=== PATIENT | female | born 1985 | race Caucasian/White ===

== ENCOUNTER 2020-02-08 13:38 | Day surgery (SDC) | payer OTHER ==
[2020-02-08 14:22] VITALS: BMI 20.9
[2020-02-08] MEDS ORDERED: hydrALAZINE 20 MG/ML VIAL SLOW IVP PRN (15:07)
--- NOTE | 2020-02-08 17:33 | ULT ---
BIOPHYSICAL PROFILE: History: High risk with decreased movement. FINDINGS: A single viable intrauterine in vertex presentation is noted. Amniotic fluid index is 14.2. heart rate is 147 beats/minute. Placenta is posterior in location. biophysical profile score: tone: 2 breathin movement: 2 Amniotic fluid: 2 IMPRESSION: biophysical profile score is 6/8. POS: OFF
--- NOTE | 2020-02-09 01:05 | SS ---
DATE OF ADMISSION: 02/08/2020 DATE OF DISCHARGE: 02/08/2020 Labor and Delivery Triage Note REGULAR PHYSICIAN: Deejay Jalloh MD. CHIEF COMPLAINT: Decreased movement. HISTORY OF PRESENT ILLNESS: Ms. Dockery is a 34-year-old white G4, P1, with an estimated date of confinement of 04/29/2020, who presents complaining of decreased movement as of this morning. She denies associated rupture of membranes or vaginal bleeding. Her care has been with Dr. Mack and has been complicated by vanishing twin in the 1st trimester. She sees Dr. Mack and she also sees Maternal Medicine at [facility] in the [place]. PAST OBSTETRICAL HISTORY: Includes 2 miscarriages as well as a vaginal delivery at 34 weeks secondary to premature rupture of membranes. PAST MEDICAL HISTORY: Includes lupus as well as anxiety. PAST SURGICAL HISTORY: Includes cholecystectomy. CURRENT MEDICATIONS: Multiple includin. vitamins. 2. Progesterone. 3. Phenergan. 4. Lovenox. 5. Lexapro. Zofran. 1. Plaquenil. ALLERGIES: NO KNOWN ALLERGIES. SOCIAL HISTORY: Denies tobacco, alcohol, or drug use. FAMILY HISTORY: Unremarkable. REVIEW OF SYSTEMS: Denies nausea, vomiting, fever, chills, ruptured membranes, or vaginal bleeding. PHYSICAL EXAMINATION: In triage her vital signs are stable. She is afebrile. GENERAL: She is pleasant, in no acute distress. ABDOMEN: Soft and nontender. heart rate tracing is stable. There are no decelerations. movement is ascertained with the Doppler. Her baby is very active. No uterine contractions were seen. Biophysical profiles ordered. They returned 11/08 with the only subtraction being for breathing movements. Her MATT is reported as 14. ASSESSMENT: 1. A 28 and 3/7 week intrauterine . 2. History of vanishing twin. 3. Lupus. 4. No evidence of concern at this time. PLAN: The patient will be dismissed to home. She was instructed regarding kick counts. She states she has a followup appointment with Dr. Mack next week. Job ID: [id number]
== END 2020-02-08 16:20 | disposition home or self-care (01) ==
LOC: L&D/OP 13:38
PROVIDERS: ATTEND Obstetrics & Gynecology
DX: O36.8130 Decreased fetal movements, third trimester, not applicable or unspecified (principal); O09.293 Supervision of pregnancy with other poor reproductive or obstetric history, third trimester; O99.343 Other mental disorders complicating pregnancy, third trimester; F41.9 Anxiety disorder, unspecified; O99.113 Other diseases of the blood and blood-forming organs and certain disorders involving the immune mechanism complicating pregnancy, third trimester; M32.9 Systemic lupus erythematosus, unspecified; Z3A.28 28 weeks gestation of pregnancy; Z79.899 Other long term (current) drug therapy
CPT/HCPCS: 76819

== ENCOUNTER 2020-03-11 13:04 | Day surgery (SDC) | payer OTHER ==
[2020-03-11 14:21] VITALS: BMI 38.4
[2020-03-11] MEDS ORDERED: hydrALAZINE 20 MG/ML VIAL SLOW IVP PRN (15:10)
[2020-03-11 15:39] LABS: Bilirubin Negative (Negative); Blood, Urine Negative (Negative); Clarity Clear (Clear); Glucose, Urine (Dipstick) Normal (Negative); Ketone, Urine 20 mg/dL (Negative); Leukocyte Negative Leu/uL (Negative); Nitrite Negative (Negative); Protein, Urine (Dipstick) Negative (Neg-Trace); RBC/HPF 0-3 HPF (0-3); Specific Gravity, Urine 1.005 (1.002-1.036); Squamous Epithelial 0-3 HPF (0-3); Urobilinogen Normal mg/dL (Less than 2); WBC/HPF None Seen HPF (0-3); pH, Urine 6.5 (5.0-9.0)
[2020-03-11 15:43] LABS: Bacteria/HPF 1+ HPF (None Seen); Urine Culture Reflex Yes Yes
--- NOTE | 2020-03-11 15:57 | PRG ---
DATE OF SERVICE: 03/11/2020 PRIMARY OB: Dr. Deejay Mack. CHIEF COMPLAINT: Uterine contractions. HISTORY OF PRESENT ILLNESS: The patient is a 34-year-old, G4, P1 female with an intrauterine at 33 weeks gestation with a twin gestation with vanishing twin in the first trimester. The patient reports that she has been feeling irregular contractions anywhere between 5 and 20 minutes present, but not painful, and has been occurring for the last 4 hours or so. The patient denies any fever, headache, chest pain, shortness of breath, nausea, vomiting, diarrhea, constipation, hip problems, knee problems, or muscle weakness. She denies change in discharge, vaginal bleeding, leakage of fluid, urinary urgency, or frequency. She does report she has had a few urinary tract infections with this . The patient had been at work today through these contractions. PAST MEDICAL HISTORY: Includes lupus and anxiety. PAST SURGICAL HISTORY: Cholecystectomy. OBSTETRIC HISTORY: She has a history of rupture of membranes at 34 weeks and two miscarriages. ALLERGIES: NO KNOWN DRUG ALLERGIES. MEDICATIONS: 1. vitamins. 2. Progesterone. 3. Phenergan. 4. Lovenox. 5. Lexapro. 6. Zofran. 7. Plaquenil. SOCIAL HISTORY: Denies drug, alcohol, or tobacco use. OB LABS: Unavailable at the time of dictation. REVIEW OF SYSTEMS: Per HPI. PHYSICAL EXAMINATION: VITAL SIGNS: Blood pressure 113/59, heart rate of 99, respiratory rate of 18, saturating 99% on room air. GENERAL: She appears to be in no acute distress. She is alert, oriented, cooperative, and pleasant to interact with. HEAD: Normocephalic and atraumatic. LUNGS: Clear to auscultation bilaterally. HEART: Has regular rate and rhythm. ABDOMEN: Gravid, soft, nontender. EXTREMITIES: Nontender and nonedematous. GENITOURINARY: Vulva is without masses, lesions, or erythema. Vagina is moist. She has minimal discharge present. Cervix is visibly closed and full. On digital exam, cervix is very soft, but is closed. heart tracing shows the fetus with a baseline in the 130s with moderate long-term variability, positive 15 x 15 accelerations, no decelerations. Tocometer showing some irritability, but no real consistent contraction seen. There has only been one or maybe two distinct contractions visible over the course of about an hour and a half. VPIII and urinalysis are both pending. ASSESSMENT AND PLAN: The patient is a 34-year-old female, G4, P1, with an intrauterine at 33 weeks gestation, who is presenting for some intermittent contractions. She has no evidence of labor at this time. We have collected a urinalysis and VPIII, for which results have not returned. The patient is being discharged home. We will be contacting her by phone to give her results. The fetus has a category 1 tracing. She is scheduled to see her provider early next week that we have encouraged to keep. Addendum: UA + for 1+bacteria - RX macrobid sent ucx pendig vp3 neg/neg/neg Job ID: [id number] [facility] SYSTEMOm[facility]
[2020-03-11] MEDS ORDERED: Nitrofurantoin Monohyd/M-Cryst 100 MG CAP PO SCH (21:00)
[2020-03-12] MEDS ORDERED: FLU VACC QS2020-21(6MOS UP)/PF 60 MCG/0.5 ML SYRINGE IM ONE (09:00)
== END 2020-03-11 15:45 | disposition home or self-care (01) ==
LOC: L&D/OP 13:04 → SDC 13:04 → L&D/OP 15:45
PROVIDERS: ATTEND Obstetrics & Gynecology
DX: O47.03 False labor before 37 completed weeks of gestation, third trimester (principal); O23.43 Unspecified infection of urinary tract in pregnancy, third trimester; B96.89 Other specified bacterial agents as the cause of diseases classified elsewhere; O99.343 Other mental disorders complicating pregnancy, third trimester; F41.9 Anxiety disorder, unspecified; O99.891 Other specified diseases and conditions complicating pregnancy; M32.9 Systemic lupus erythematosus, unspecified; O09.293 Supervision of pregnancy with other poor reproductive or obstetric history, third trimester; Z3A.33 33 weeks gestation of pregnancy; Z79.01 Long term (current) use of anticoagulants; Z79.899 Other long term (current) drug therapy; Z91.013 Allergy to seafood
CPT/HCPCS: 36415; 81001; 87086; 87480; 87510; 87660

== ENCOUNTER 2020-03-20 13:02 | Day surgery (SDC) | payer OTHER ==
[2020-03-20 14:03] LABS: Amnisure Test No Membranes Rupture (No Rupture)
[2020-03-20 14:04] VITALS: BP 122/76; TEMP 99.3; BMI 37.9
[2020-03-20 14:04] LABS: Amnisure Internal Control QC ACCEPTABLE (ACCEPTABLE)
[2020-03-20] MEDS ORDERED: FLU VACC QS2020-21(6MOS UP)/PF 60 MCG/0.5 ML SYRINGE IM ONE (14:15)
--- NOTE | 2020-03-20 14:31 | PDOC.LDHP ---
Labor and Delivery H&P Chief complaint: loss of fluid HPI: Patient is a 34 yo at 34.2 weeks gestational age who presents with complaint of loss of fluid that occurred around 0200 today. Patient says she had intercourse with her about an hour prior to that and then laid down in bed and had a large pool of fluid that came out. No leakage of fluid since. Denies any vaginal bleeding, dysuria, abdominal pain, back pain. Does have nausea and vomiting that has lasted throughout the entire . Patient has a history of rupture of membranes at 34 weeks in her first . Also recently diagnosed with UTI and currently taking Macrobid, last dose today. Current gestational age (weeks): 34 (34.2) Grav: 4 Para: 1 (1021) OB History Details: Hx of rupture of membranes at 34 weeks in prior Hx of 2 miscarriages Current complicated by vanishing twin in the 1st trimester Abnormal US findings: No Past Medical History: Anxiety SLE, currently on Lovenox therapy during this Current medications: pre-josr vitamins Previous surgical history: cholecystectomy (age 19) Allergies/Adverse Reactions: Allergies Allergy/AdvReac Type Severity Reaction Status Date / Time No Known Drug Allergies Allergy Verified 03/20/20 13:51 SHRIMP AND CRAB BUT NOT Allergy Uncoded 09/13/13 03:05 CONTRAST Social history: none - Physical Exam Vital signs reviewed and normal: yes General: resting Lungs: nonlabored breathing Abdomen: gravid Extremeties: no edema FHT: category 1 [place] contractions every: none seen - Vaginal Exam cm dilated: 0 (no pooling of fluid on speculum exam) - Plan -: Patient is a 34 yo at 34.2 weeks gestational age who presents to L&D triage: #Possible ROM--ruled out -Amnisure negative -sterile speculum exam reveals no pooling of fluid -no evidence of labor at this time, FHT with baseline 145 bpm and +accels, no CTX -follows with Dr. Mack, has appointment this week #Hx of SLE -aware -currently on Plaquenil and Lovenox therapy #Hx of UTI -currently on Macrobid, last dose today Dispo: Ruled out rupture of membranes at this time. Provided patient reassurance and return precautions given. Discharged to home in stable condition. Addendum - Attending - Attending Attestation Date/Time: 03/20/20 2161 I personally evaluated the patient and discussed the management with Dr. Cornell. 34 week IUP c/o ? LOF. Pt. of Dr. Mack. Amnisure and SSE both negative. Home with precautions. I agree with the History, Examination, Assessment and Plan documented above.
== END 2020-03-20 14:30 | disposition home or self-care (01) ==
LOC: L&D/OP 13:02
PROVIDERS: ATTEND Obstetrics & Gynecology
DX: O99.891 Other specified diseases and conditions complicating pregnancy (principal); N89.8 Other specified noninflammatory disorders of vagina; O99.113 Other diseases of the blood and blood-forming organs and certain disorders involving the immune mechanism complicating pregnancy, third trimester; M32.9 Systemic lupus erythematosus, unspecified; O23.43 Unspecified infection of urinary tract in pregnancy, third trimester; O99.343 Other mental disorders complicating pregnancy, third trimester; F41.9 Anxiety disorder, unspecified; O09.293 Supervision of pregnancy with other poor reproductive or obstetric history, third trimester; Z3A.34 34 weeks gestation of pregnancy; Z79.01 Long term (current) use of anticoagulants; Z79.899 Other long term (current) drug therapy; Z91.013 Allergy to seafood
CPT/HCPCS: 84112; 99284

== ENCOUNTER 2020-03-23 10:03 | Observation (INO) | payer OTHER ==
[2020-03-23] MEDS ORDERED: hydrALAZINE 20 MG/ML VIAL SLOW IVP PRN (10:11)
[2020-03-23] MEDS ORDERED: Ondansetron PF 4 MG/2 ML Vial IVP PRN (10:11)
[2020-03-23] MEDS ORDERED: Promethazine HCl 25 MG/ML VIAL IM PRN (10:11)
[2020-03-23 10:43] VITALS: BMI 37.9
[2020-03-23 11:10] LABS: Hemoglobin 11.1 g/dL (12.0-16.0); Mean Corpuscular HGB CONC 33.6 g/dL (32.0-36.0); Mean Corpuscular Hemoglobin 27.9 pg (27.0-31.0); Platelet Count 292 thou/uL (130-400); RBC Distribution Width 11.7 % (11.5-14.5); White Blood Cell (WBC) Count 7.2 thou/uL (4.8-10.8)
[2020-03-23] MEDS: Betamet Acet/Betamet Na Ph 30 MG/5 ML VIAL IM SCH (11:27)
[2020-03-23 11:56] LABS: Syphilis Antibody Nonreactive (Nonreactive); Syphilis Antibody Index 0.03 S/CO (<1.00 Non-Reactive)
[2020-03-23 11:58] LABS: HBSAg Index 0.16 S/CO (0-0.99); Hep B Surf Ag Non-Reactive S/CO (NonReactive)
--- NOTE | 2020-03-23 17:35 | HP ---
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 HISTORY OF PRESENT ILLNESS: Ms. Dockery is a 34-year-old 4, para 1, AB 1, vanishing twin one, with an EDC of 04/28/2020. She is at 34 weeks and 6 days. She has been seen in my office throughout her as well as in the [place] with q.2-week ultrasound cervical length and anatomy scan. She has been receiving [place] and has been having contractions off and on for approximately 33 weeks' gestation. The patient has a history of anxiety and depression that is antecedent to her and that has worsened. She is now reporting severe anxiety. Her is concerned that she may hurt herself with self digital exam or instrumentation. Because of these concerns and her contractions, decision was made to admit her into observational status for corticosteroids as well as atypical antipsychotic. 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 Blood type A positive, antibody negative. Pap negative. Rubella immune. VDRL nonreactive. Hepatitis B, GC, and chlamydia negative. Group B Strep pending. PAST MEDICAL HISTORY: She has mild lupus or another poorly characterized autoimmune disease and depression. PAST SURGICAL HISTORY: Significant for cholecystectomy and hand surgery. ALLERGIES: SHRIMP AND CRAB. MEDICATIONS: Include, 1. Baby aspirin. 2. Cyclobenzaprine. 3. Escitalopram 20 daily. 4. Hydroxychloroquine 200 p.o. t.i.d. 5. [place]. FAMILY HISTORY: Noncontributory. REVIEW OF SYSTEMS: Noncontributory. PHYSICAL EXAMINATION: GENERAL: White female, crying, in no acute distress. VITAL SIGNS: Blood pressure 116/78, pulse 85, respirations 18, weight is 223 pounds. HEENT: Within normal limits. LUNGS: Clear to auscultation bilaterally. HEART: Regular rate and rhythm. ABDOMEN: Soft and nontender. Fundal height 35. FHTs 140s. Vulvar without lesions. Vagina without discharge. Cervix; 1, 75, -2, cephalic, ballottes. Bag of water intact. EXTREMITIES: No clubbing, cyanosis, or edema. NEUROLOGIC AND PSYCHIATRIC: Reveals she is alert and oriented to time and place. She seems to have an ordered thought processes and no immediate plans to harm herself. However, she is very tearful and anxious with her at her side. IMPRESSION: Thirty-four weeks' gestation, complicated high-risk with worsening maternal anxiety and depression, unresponsive to Lexapro. PLAN: We will admit the patient to the hospital. PID, FHT/nonstress test. We will initiate betamethasone for lung maturity due to the patient's risk of delivery and initiate Seroquel at 25 mg p.o. at bedtime for severe depression and anxiety. The patient understands the risks and benefits of the medical treatments we prescribed and agrees to these along with her who is a family medicine doctor. Anticipate possible discharge home on 03/24 or 03/25 with continuing on the Seroquel on the nightly basis through the rest of her . Job ID: [id number]
[2020-03-23] MEDS ORDERED: Acetaminophen 500 MG TAB PO PRN (20:48)
[2020-03-23] MEDS ORDERED: Escitalopram Oxalate 20 mg Tablet PO SCH (21:00)
[2020-03-23] MEDS ORDERED: Prenatal Vitamin 1 TAB PO SCH (21:00)
[2020-03-23] MEDS ORDERED: Famotidine 20 MG TAB PO SCH (21:00)
[2020-03-23] MEDS: Hydroxychloroquine Sulfate 200 MG TAB PO SCH ×2 (21:14→21:38)
[2020-03-24] MEDS ORDERED: Calcium Carbonate 500 MG ChewTAB PO PRN (02:45)
[2020-03-24 07:57] VITALS: BP 98/53; TEMP 98.3
[2020-03-24] MEDS ORDERED: Betamet Acet/Betamet Na Ph 30 MG/5 ML VIAL IM SCH (11:45)
[2020-03-24] MEDS: Betamet Acet/Betamet Na Ph 30 MG/5 ML VIAL IM SCH (11:59)
[2020-03-24 13:16] LABS: SARS-CoV-2 MS2 Positive; SARS-CoV-2 N Gene Negative; SARS-CoV-2 S Gene Negative; SARS-CoV-2 by NAA Not Detected (NotDetected); SARS-CoV-2 orf1ab Negative
--- NOTE | 2020-03-25 10:43 | DIS ---
DATE OF ADMISSION: 03/23/2020 DATE OF DISCHARGE: 03/24/2020 SUMMARY OF HOSPITAL COURSE: The patient was admitted at 34-35 weeks gestation, vanishing twin syndrome, history of labor, history of depression with contractions and severe anxiety. Her cervix has been noted to be unchanged at 1, 70 and -2, cephalic, bag of water, intact, ballottes with ease. She was initiated on Seroquel 25 mg p.o. at bedtime, which seems to have markedly improved her psychologic condition. She has good support system at home and we will have her and her in-laws with her continuously at home. She has no suicidal ideations or intent to hurt herself. We will do a nonstress test this morning prior to discharge, administer a 2nd dose of betamethasone for lung maturity and discharged home. Discharge medications include admission medications plus Seroquel 25 p.o. at bedtime. The patient is scheduled for followup with myself in [address] [facility] [place]. Job ID: [id number]
== END 2020-03-24 12:10 | disposition home or self-care (01) ==
LOC: L&D 10:03 → 3SW 23:15
PROVIDERS: ADMIT Obstetrics & Gynecology; ATTEND Obstetrics & Gynecology
DX: O99.343 Other mental disorders complicating pregnancy, third trimester (principal); F41.9 Anxiety disorder, unspecified; F32.9 Major depressive disorder, single episode, unspecified; O99.891 Other specified diseases and conditions complicating pregnancy; M35.9 Systemic involvement of connective tissue, unspecified; M32.9 Systemic lupus erythematosus, unspecified; O31.23X0 Continuing pregnancy after intrauterine death of one fetus or more, third trimester, not applicable or unspecified; Z3A.34 34 weeks gestation of pregnancy; Z79.82 Long term (current) use of aspirin; Z79.899 Other long term (current) drug therapy; Z91.013 Allergy to seafood; Z20.828 Contact with and (suspected) exposure to other viral communicable diseases
CPT/HCPCS: 36415; 85027; 86780; 86850; 86900; 86901; 87081; 87340; 87635; 96372; G0378; J0702; J2550; U0003

== ENCOUNTER → 2020-04-01 | Day surgery (SDC) | payer OTHER ==
[~2020-04-01] MED LIST: hydrALAZINE 20 MG/ML VIAL SLOW IVP PRN
[2020-04-01 19:36] VITALS: BMI 37.1
[2020-04-01 20:39] LABS: Amnisure Test No Membranes Rupture (No Rupture)
[2020-04-01 20:40] LABS: Amnisure Internal Control QC ACCEPTABLE (ACCEPTABLE)
[2020-04-01 21:16] VITALS: TEMP 98.2
--- NOTE | 2020-04-01 21:46 | PDOC.BPN ---
- Brief Progress Note Encounter Date: 04/01/20 Encounter Time: 21:45 SSE exam and plan: SSE performed by Dr Serra as I was attending to an urgent need in [place] with another patient. SSE was negative for LOF with neg maneuvers. CX visually was not dilated. SSE and Neg are very reassuring against ROM. Sono for LP by tech ordered to be conservative due to SLE HX. NST reactive.
--- NOTE | 2020-04-01 22:03 | HP ---
TIME OF INVESTIGATION: Roughly 2130 hours. LOCATION: Labor and Delivery triage in bed B. This is a faculty attestation. The patient was first seen by Dr. Vielka Villarreal who is our resident pharmacy operations specialist. I have seen the patient at bedside. This is a patient of Dr. Mack. Estimated gestational age is 36 weeks and 1 day. HISTORY OF PRESENT ILLNESS: In brief, this is a 34-year-old multigravida who is a 4, para 1, SAB 2, with a history of a first-trimester twin demise at around 9 weeks. She is now at 36 weeks and 1 day. She also has a medical history significant for systemic lupus erythematosus and she is on Plaquenil and was taken off Lovenox earlier in the . She is however on low-dose aspirin. She states that she has had some trickling of fluid on and off since about 10 a.m. when she felt a "pop", but she has no large gush of fluid noted and there is no vaginal bleeding. She states that her , who is a family medicine physician checked her and she was about 3-4 cm or so. She did receive steroids about a week ago by Dr. Mack and so that has already been done. She has a scheduled induction of labor next week at about 37 weeks. PAST MEDICAL HISTORY: As previously discussed, significant for lupus. MEDICATIONS: Include: 1. Plaquenil. 2. Low-dose aspirin. 3. vitamin. OB HISTORY: She has had 1 history of x1 in the past and again this was a twin with a vanishing twin syndrome and now she is at 36 weeks. On monitor baby is reactive and there are no real contractions on tocodynamometer. LABORATORY DATA: Laboratory shows AmniSure is negative. PHYSICAL EXAMINATION: VITAL SIGNS: In general vital signs are stable. She is afebrile. Her blood pressure is 111/81. Sterile spec is being performed by Dr. Villarreal as I am dictating this. There is no gross evidence of pooling on the perineum clinically. ASSESSMENT: This is a multigravida at 36 weeks and 1 day with unclear leakage of fluid with negative AmniSure as a screen, but we will complete the exam by doing a sterile spec. PLAN: 1. The patient seen at bedside and plan reviewed. 2. She does have a scheduled induction next week. 3. For now, we will do the sterile spec and may consider an ultrasound to make sure that there is no oligo with her systemic lupus erythematosus history. Job ID: [id number]
--- NOTE | 2020-04-01 22:09 | PDOC.LDHP ---
Labor and Delivery H&P Chief complaint: loss of fluid HPI: 34 y/o @ 36.1 weeks presents to L&D after suspected LOF. Pt states she felt a "pop" this morning around 10 AM. She reports gradual leaking of fluid throughout today and some vaginal spotting with mucus like discharge. Pt states her mucus plug has been shedding for the past past week, but no vag bleeding until today. Denies dysuria, vaginal irritation. Pt admits to few random contractions. Pt reports good movements. Pt had steroids X2 last week. PMHX: SLE on plaquenil. was on lovenox up until 34 weeks due to hx of PPH in previous delivery. Pt has a hx of a vanishing twin @ 9.6 weeks this and a hx of PTD in previous at 35 week. Pt denies any vaginal intercourse recently. PCP: Dr. Mack Current gestational age (weeks): 36 (36.1) Grav: 4 Para: 1 OB History Details: Preg #1: spon AB @ 7 weeks 06/2016 Preg #2: PTD @ 35 weeks, after PPROM @ 34.2 weeks, PPH not requiring blood transfusion Preg #3: Spon AB @ 6 weeks Preg #4: vanishing twin in 1T; thought to be trisomy 18. TCH/MFM performed CL from weeks 16-26 with nml findings. Current complications: other (vanishing twin in 1T SLE given steroids in week 35- X2) Abnormal US findings: Yes (1T vanishing twin ) Past Medical History: SLE: has caused complications requiring X2 hospitalizations such as pancreatitis and abnormal liver enzyme findings in past. has been stable throughout Previous surgical history: other (L hand sx 2002) Allergies/Adverse Reactions: Allergies Allergy/AdvReac Type Severity Reaction Status Date / Time No Known Drug Allergies Allergy Verified 03/23/20 10:43 SHRIMP AND CRAB BUT NOT Allergy Uncoded 03/23/20 10:43 CONTRAST Social history: none - Physical Exam Vital signs reviewed and normal: yes General: NAD Heart: RRR Lungs: CTAB Abdomen: gravid Extremeties: no edema FHT: variability present [place] contractions every: none - Vaginal Exam cm dilated: 0 - Assessment 34 y/o @ 36.1 weeks presents to L&D with subjective LOF 1. sIUP @ 36.1 weeks - TOCO and FHT monitoring 2. subjective LOF - SSE: closed os, no pooling of fluids on valsalva, no blood as os - OB limited US ordered, to rule in/out oligohydramnios - amnisure negative 3. Hx of PTD - @ 35 weeks - steroids given in week 35 - no evidence of PTL today 4. SLE - on plaquenil - stopped lovenox @ 34 weeks due to hx of PPH - on ASA Dispo: pending US results plan dispo home with strict return precautions Plan discussed with Dr. De Guzman, attending physician, who is in agreement with above stated plan.
--- NOTE | 2020-04-01 22:31 | PDOC.BPN ---
- Brief Progress Note Encounter Date: 04/01/20 Encounter Time: 22:30 Pt received limited OB sono with MVP 7 no evidence for oligo or indication to admit to L&D normal SSE, with no pooling or membranes present. Amnisure negative With the above evidence, pt d/c home with return precautions. f/u with Dr. Mack per usual schedule.
--- NOTE | 2020-04-01 22:43 | ULT ---
Limited Obstetrical Ultrasound INDICATION: Question partial rupture of membranes TECHNIQUE: Grayscale, M-mode Doppler, color Doppler and spectral Doppler images were obtained. Tyrel bunn is focused on the clinical indication. COMPARISON: Prior obstetrical ultrasound dated February 08, 2020 FINDINGS: GESTATION: Number of gestations: Single. Presentation: Cephalic. heart rate: 171 bpm. Placental location: Posterior Previa: No evidence for previa. Cervical length: Not well seen MATT: 18.7 cm. LIMITED SURVEY: No abnormality as visualized. BIOMETRY: Biparietal diameter: 9.17cm, 37 weeks and 2 days, 87th percentile. Head circumference: 33.26 cm, 38 weeks and 0 days, 68th percentile Abdominal circumference: 32.31 cm, 36 weeks and 2 days, 67 percentile Femoral length: 6.6 bycm, 34 weeks and 2 days, 19th percentile Estimated weight: 2824 g +/- 418g (6 lbs. 4 oz. +/- 15 ounces), 51st percentile The average gestational age by ultrasound is 36 weeks and 3 dayswith estimated due date of April 042019. The estimated dates by clinical data is 36 weeks and 0 dayswith estimated due date of April 29. IMPRESSION: 1. Single live intrauterine gestation with size and dates as above. 2. The MATT appears within normal limits.
== END | disposition home or self-care (01) ==
LOC: L&D/OP 18:18
PROVIDERS: ATTEND Obstetrics & Gynecology
DX: O99.891 Other specified diseases and conditions complicating pregnancy (principal); N89.8 Other specified noninflammatory disorders of vagina; M32.9 Systemic lupus erythematosus, unspecified; O09.293 Supervision of pregnancy with other poor reproductive or obstetric history, third trimester; O09.213 Supervision of pregnancy with history of pre-term labor, third trimester; Z3A.36 36 weeks gestation of pregnancy; Z79.899 Other long term (current) drug therapy; Z91.013 Allergy to seafood; Z79.82 Long term (current) use of aspirin
CPT/HCPCS: 76815; 84112

== ENCOUNTER 2020-04-08 18:00 | Inpatient (IN) | payer OTHER ==
[2020-04-09] MEDS ORDERED: NS / Oxytocin 40 units/1000ml 1,000 ML IV PRN (00:40)
[2020-04-09] MEDS ORDERED: Ondansetron PF 4 MG/2 ML Vial IVP PRN ×3 (00:40→23:53)
[2020-04-09] MEDS ORDERED: hydrALAZINE 20 MG/ML VIAL SLOW IVP PRN ×2 (00:40→23:53)
[2020-04-09] MEDS ORDERED: Butorphanol Tartrate 1 MG/ML VIAL SLOW IVP PRN (00:40)
[2020-04-09] MEDS ORDERED: HYDROcodone/Acetaminophen 5/325 mg Tablet PO PRN ×3 (00:40→23:53)
[2020-04-09] MEDS ORDERED: Ibuprofen 800 MG TAB PO PRN (00:40)
[2020-04-09] MEDS ORDERED: Lidocaine 1% (PF) 30 ML VIAL SC PRN (00:40)
[2020-04-09] MEDS ORDERED: Promethazine HCl 25 MG/ML VIAL IM PRN ×2 (00:40→15:10)
[2020-04-09] MEDS ORDERED: Lactated Ringer's 1,000 ML IV SCH (01:00)
[2020-04-09] MEDS ORDERED: Misoprostol 100 MCG TAB VAG SCH (01:00)
[2020-04-09 01:13] VITALS: BMI 37.8
[2020-04-09 01:30] LABS: Hemoglobin 10.9 g/dL (12.0-16.0); Mean Corpuscular HGB CONC 34.9 g/dL (32.0-36.0); Mean Corpuscular Hemoglobin 28.4 pg (27.0-31.0); Mean Corpuscular Volume 81.4 fL (78.0-98.0); Mean Platelet Volume 8.4 fL (7.4-10.4); Platelet Count 263 thou/uL (130-400); RBC Distribution Width 12.2 % (11.5-14.5); Red Blood Cell (RBC) Count 3.84 mill/uL (4.20-5.40); White Blood Cell (WBC) Count 6.9 thou/uL (4.8-10.8)
[2020-04-09] MEDS: Lactated Ringer's 1,000 ML IV SCH ×2 (02:00→16:00)
[2020-04-09 02:09] LABS: HBSAg Index 0.13 S/CO (0-0.99); Hep B Surf Ag Non-Reactive S/CO (NonReactive)
[2020-04-09 03:45] LABS: Syphilis Antibody Nonreactive (Nonreactive); Syphilis Antibody Index 0.03 S/CO (<1.00 Non-Reactive)
[2020-04-09] MEDS: NS w/ Oxytocin 10 units 500 ML IV SCH ×2 (06:00→19:27)
--- NOTE | 2020-04-09 07:49 | PDOC.LDHP ---
Labor and Delivery H&P Chief complaint: scheduled induction, other HPI: 34 y/o at 37w2d here for IOL per MFM due to hx SLE. OB History Details: First trimester SAB x 2 1 PTD at 35 weeks after PROM at 34 weeks, PPH not requiring transfusion. This complicated by vanishing twin at 9.6 weeks. Current complications: other (SLE, vanishing twin) Past Medical History: SLE on Plaquenil Anxiety on Seroquel Previous surgical history: other (wrist surgery) Allergies/Adverse Reactions: Allergies Allergy/AdvReac Type Severity Reaction Status Date / Time No Known Drug Allergies Allergy Verified 04/09/20 01:15 SHRIMP AND CRAB BUT NOT Allergy Intermediate Uncoded 04/09/20 01:15 CONTRAST - Physical Exam Vital signs reviewed and normal: yes General: NAD, resting Lungs: nonlabored breathing Abdomen: gravid FHT: category 1 (135, mod variability, + accels, no decels) [place] contractions every: irregular - Vaginal Exam cm dilated: 2 Effacement: 50% Station: -3 - OB Labs Blood type: A RH: positive Antibody Screen: negative HIV: negative RPR: negative HEPSAg: negative 1 hour GCT: negative GBS: negative - Assessment L&D Assessment: medically indicated induction - Plan Plan: admit to L&D, cervical ripening, labor augmentation if indicated, informed consent obtained, anesthesia consult for pain management (if desired)
[2020-04-09] MEDS ORDERED: Fentanyl 4 mcg/Bup 0.1% Cadd 100 ML ONE ×2 (15:08→20:27)
[2020-04-09] MEDS ORDERED: Lactated Ringer's 500 ML IV PRN (15:10)
[2020-04-09] MEDS ORDERED: Naloxone HCl 0.4 mg/ml Vial IVP PRN ×2 (15:10)
[2020-04-09] MEDS ORDERED: diphenhydrAMINE 50 MG/ML VIAL IVP PRN (15:10)
[2020-04-09] MEDS ORDERED: Acetaminophen 325 MG TAB PO PRN (15:10)
[2020-04-09] MEDS ORDERED: EPHEDRINE 25 MG/5 ML SYRINGE SLOW IVP PRN (15:10)
[2020-04-09] MEDS ORDERED: Communication Order-Pharmacy FS SCH (15:15)
[2020-04-09] MEDS ORDERED: Fentanyl 4 mcg/Bupivacaine 0.1% Cassette 100 ML EPIDURAL SCH (15:15)
--- NOTE | 2020-04-09 16:41 | PDOC.BPN ---
- Brief Progress Note Encounter Date: 04/09/20 L&D Check: 4cm/50/-2 with SROM as of 1500. TYLOR in use. Clear f;uid. Pressures wnl. Strip reviewed.Continue pitocin.
[2020-04-09] MEDS ORDERED: Misoprostol 200 MCG TAB ONE (17:23)
[2020-04-09] MEDS: NS / Oxytocin 40 units/1000ml 1,000 ML IV SCH (21:25)
--- NOTE | 2020-04-09 21:29 | PDOC.OPDEL ---
OB Operative/Delivery Note Delivery Dr/Surgeon: Cali Procedure/Post Delivery Dx: spontaneous vaginal delivery Weeks gestation: 37 Anesthesia: epidural - Findings A Sex: male - Additional Findings/Plan Placenta delivered: spontaneous Repaired Obstetrical Laceration: 1st degree Estimated blood loss: 100ml Post delivery plan: routine recovery
--- NOTE | 2020-04-09 22:03 | PDOC.BPN ---
- Brief Progress Note Encounter Time: 22:05 Patient delivered by the backup physician quality control checker as I was attending to a stat CS in the L&D operating room with Dr Cornell.
[2020-04-09] MEDS ORDERED: diphenhydrAMINE 25 MG CAP PO PRN (23:53)
[2020-04-09] MEDS ORDERED: Lanolin Ointment 7 GM TUBE TOP PRN (23:53)
[2020-04-09] MEDS ORDERED: Milk Of Magnesia 30 ML UDCUP PO PRN (23:53)
[2020-04-09] MEDS ORDERED: Bisacodyl 10 MG SUPP PR PRN (23:53)
[2020-04-09] MEDS ORDERED: Preparation H Ointment 28 GM TUBE PR PRN (23:53)
[2020-04-09] MEDS ORDERED: Benzocaine-Menthol 82.5 ML CAN TOP PRN (23:53)
[2020-04-10] MEDS: NS / Oxytocin 40 units/1000ml 1,000 ML IV SCH (00:21)
[2020-04-10] MEDS: Ibuprofen 800 MG TAB PO SCH ×4 (00:55→22:23)
[2020-04-10] MEDS: Lactated Ringer's 1,000 ML IV SCH (01:33)
[2020-04-10] MEDS: HYDROcodone/Acetaminophen 5/325 mg Tablet PO PRN ×2 (06:22→17:37)
--- NOTE | 2020-04-10 06:24 | PDOC.PP ---
Post Progress Note Post Day #: 1 Subjective: Doing well PO intake tolerated: yes Flatus: yes Ambulation: yes Vital Signs (12 hours) Temp Pulse Resp BP 04/10/20 02:45 98.4 F 93 16 113/58 L 04/10/20 01:45 98.9 F 93 16 113/62 04/10/20 00:40 99.9 F H 114 H 16 113/65 Weight Weight 220 lb - Physical Examination General: NAD Respiratory: non-labored breathing Abdominal: no distention, appropriately TTP Neurological: no gross focal deficits Psychiatric: A&Ox3, normal affect Result Diagrams: 04/09/20 01:21 Additional Labs: Post Labs Hep Bs Antigen Non-Reactive S/CO (NonReactive) 04/09/20 01:21 Blood Type A POSITIVE 04/09/20 01:21 (1) Vaginal delivery Code(s): O80 - ENCOUNTER FOR FULL-TERM UNCOMPLICATED DELIVERY Status: Acute - Assessment/Plan PPD1 doing well. Some afterpains but tolerable. She desires DC to home at 24 hours. I reviewed with her that 24 hrs would be at 2200, and she prefers that if possible. I will place DC order at 2200 per patient request and possible B&B if baby not ready.
[2020-04-10] MEDS ORDERED: Adacel (T-DAP) 0.5 ML SYRINGE IM ONE (09:00)
[2020-04-10] MEDS ORDERED: Prenatal Vitamin 1 TAB PO SCH (09:00)
[2020-04-10] MEDS: Ferrous Sulfate 325 MG TAB PO SCH ×2 (09:06→15:50)
[2020-04-10] MEDS: Docusate Calcium (SURFAK) 240 MG CAP PO SCH ×2 (09:13→22:24)
[2020-04-10] MEDS ORDERED: Enoxaparin Sodium 40 MG/0.4 ML SYRINGE SC SCH (10:30)
[2020-04-10] MEDS ORDERED: FLU VACC QS2020-21(6MOS UP)/PF 60 MCG/0.5 ML SYRINGE IM ONE (12:15)
[2020-04-10 16:43] VITALS: BP 107/55; TEMP 97.7
[2020-04-11] MEDS ORDERED: Enoxaparin Sodium 40 MG/0.4 ML SYRINGE SC SCH (09:00)
== END 2020-04-10 23:00 | disposition home or self-care (01) | DRG 807 ==
LOC: L&D-LIB 04-09 00:25 → 3SW 04-10 00:46
PROVIDERS: ADMIT Obstetrics & Gynecology; ATTEND Obstetrics & Gynecology
PROC: 10E0XZZ Delivery of Products of Conception, External Approach (ICD-10-PCS; principal; 2020-04-09)
PROC: 3E033VJ Introduction of Other Hormone into Peripheral Vein, Percutaneous Approach (ICD-10-PCS; 2020-04-09)
PROC: 0HQ9XZZ Repair Perineum Skin, External Approach (ICD-10-PCS; 2020-04-09)
DX: O99.344 Other mental disorders complicating childbirth (principal); Z37.0 Single live birth; F41.9 Anxiety disorder, unspecified; Z3A.37 37 weeks gestation of pregnancy; Z91.013 Allergy to seafood; O70.0 First degree perineal laceration during delivery
CPT/HCPCS: 36415; 51702; 85027; 86780; 86850; 86900; 86901; 87340; J1650; J2590

== ENCOUNTER 2024-04-02 16:23 | Outpatient (CLI) | payer BC | END 2024-04-02 16:24 | disposition home or self-care (01) | LOC: SCSRAD 16:23 | PROVIDERS: ATTEND Family Medicine | DX: S59.911A Unspecified injury of right forearm, initial encounter (principal) ==